=== PATIENT | male | born 1970 | race Two or more races ===

== ENCOUNTER 2023-12-30 15:47 | Emergency (ER) | payer SELFPAY ==
[~2023-12-30] VITALS: Ht 157.5 cm; Wt 94.5 kg
[2023-12-30 16:11] VITALS: BP 134/85; PULSE 62; RESP 16; O2SAT 99
[2023-12-30 17:03] LABS: Urine WBC None Seen /hpf (0 - 3)
[2023-12-30 17:15] LABS: Urine Bacteria NONE SEEN /hpf (None Seen); Urine Blood Negative /uL (Negative); Urine Clarity Clear (Clear); Urine Color Colorless (Yellow); Urine Protein, UAD Negative (Negative); Urine Specific Gravity 1.006 (1.001-1.035); Urine Urobilinogen Normal (Negative)
[2023-12-30] MEDS ORDERED: HYDR2.5C39 TOP (20:26)
== END 2023-12-30 20:45 | disposition home or self-care (01) ==
LOC: ER 15:47
DX: K64.4 Residual hemorrhoidal skin tags (principal); Z79.899 Other long term (current) drug therapy
CPT/HCPCS: 81001